=== PATIENT | male | born 1985 | race Caucasian/White ===

== ENCOUNTER 2024-09-30 18:30 | Emergency (ER) | payer OTHER, SELFPAY ==
[2024-09-30 18:31] VITALS: BP 122/71; PULSE 70; RESP 15; TEMP 36.6; O2SAT 100; BMI 25.5
--- NOTE | 2024-09-30 18:48 | CT_ITS ---
EXAM: BRAIN/HEAD WITHOUT CONTRAST CLINICAL HISTORY: 39 y/o M with HEAD INJURY, pinned between horse and adjunct trainer, laceration to the right cheek and nose. COMPARISON: None. TECHNIQUE: Routine CT imaging of the head without IV contrast. Additional multiplanar reformats were obtained. Dose reduction techniques were used including intermediate exposure control (AEC),iterative reconstruction technique, and/or mA and/or KV dose adjustments based on patient's size. FINDINGS: No acute intracranial hemorrhage or herniation. The richardson-white matter interfaces are maintained. No ventriculomegaly. The basal cisterns are patent. No acute calvarial fracture or scalp hematoma. See same day CT face for discussion of right orbital fracture. CT/Brain/Head without Contrast IMPRESSION: 1. No acute intracranial finding. 2. See same day CT face for discussion of right orbital fracture. Reading Location: [id number]
--- NOTE | 2024-09-30 18:48 | CT_ITS ---
PROCEDURE: SINUS/FACIAL BONE REASON FOR EXAM: TRAUMA TECHNIQUE: CT of the paranasal sinuses without contrast. Coronal and Sagittal reconstruction series were provided. One or more dose reduction techniques were used (e.g., Automated exposure control, adjustment of the mA and/or kV according to patient size, use of iterative reconstruction technique). COMPARISON: Same-day CT head. FINDINGS: Acute fracture deformity of the nasal bone, right inferior orbital floor, infratemporal surface of the maxilla, lamina papyracea, right zygomatic process and orbital surface of the zygomatic bone. No obvious extraocular entrapment. No obvious extraocular edema or swelling. Inspissated layering secretions within the right maxillary sinus, compatible with hematoma. The visualized upper cervical bones are unremarkable. CT/Sinus/Facial Bone IMPRESSION: 1. Acute right inferior and medial wall orbital blowout fracture. 2. No obvious extraocular entrapment, edema or swelling. Reading Location: [id number]
[2024-09-30 19:30] VITALS: BP 125/76; PULSE 74; RESP 16; O2SAT 99
[2024-09-30] MEDS: Diphth,Pertuss(Acell),Tet Vac 0.5 ML Vial IM (19:37)
[2024-09-30] MEDS: Lidocaine 2% /Epi 1:100 (20ml) 20 ML VIAL INFILT (19:45)
--- NOTE | 2024-09-30 19:51 | EX.ED.DYSGE1 ---
HPI <DANNIE Alicea - Last Filed: 09/30/24 20:07> History of Present Illness Chief Complaint: Head Injury Narrative Narrative: Patient is a 39-year-old male with no significant medical history, patient states today he was struck by the side of a half of a horse getting caught in between the horse and the trailer. Patient denies any LOC. Patient is unsure of last tetanus vaccination. Patient does have a laceration to the right cheek as well as the bridge of his nose. He denies any vision changes. PFSH <DANNIE Alicea - Last Filed: 09/30/24 20:07> PFSH Medical History no medical history Home Medications ?Medication ?Instructions ?Recorded ?Last Taken ?Type cephalexin 500 mg capsule 500 mg PO TID 5 days #15 caps 09/30/24 Unknown Rx cephalexin 500 mg capsule 500 mg PO TID 5 days #15 caps 09/30/24 Unknown Rx hydrocodone-acetaminophen 5-325mg 1 tab PO Q6H PRN PRN Pain 3 days 09/30/24 Unknown Rx 5mg-325mg #10 TABLETS hydrocodone-acetaminophen 5-325mg 1 tab PO Q6H PRN PRN Pain 3 days 09/30/24 Unknown Rx 5mg-325mg #10 TABLETS hydrocodone-acetaminophen 5-325mg 1 tab PO Q6H PRN PRN Pain 3 days 09/30/24 Unknown Rx 5mg-325mg #10 TABLETS Allergy/AdvReac Type Severity Reaction Status Date / Time No Known Allergies Allergy Verified 09/30/24 18:31 Family History no significant family his Surgical History no surgical history Social History (Updated 09/30/24 @ 18:52 by Cinthia Llanos) household members: family Smoking Status: Never smoker ROS <DANNIE Alicea - Last Filed: 09/30/24 20:07> ROS ED ROS Narrative Constitutional: Negative for fever, chills, weight loss, weakness Eyes: Negative for vision loss, vision change, double vision ENT: Negative for any sore throat, ear pain, congestion Cardiovascular: Negative for any chest pain, tightness, palpitations Respiratory: Negative for any cough, sputum production, hemoptysis, dyspnea, dyspnea on exertion, orthopnea Gastrointestinal: Negative for any abdominal pain, nausea, vomiting, diarrhea, constipation, blood in stool, blood in vomit : Negative for any urinary frequency, dysuria, retention, blood in urine Muscle skeletal: Negative for any neck pain, back pain Neurological: Negative for any headache, syncope, dizziness Skin: Negative for any rashes, itching, abrasions. Positive facial laceration, bridge of nose laceration Psychiatric: Negative for any depression, anxiety, stress, suicidal ideation, homicidal ideation Hematologic: Negative for any excessive bruising, easy bleeding EXAM <DANNIE Alicea - Last Filed: 09/30/24 20:07> Physical Exam Narrative Exam Narrative: Vital signs reviewed. HEET: Head normocephalic atraumatic, TMs clear bilaterally. Posterior pharynx is clear, moist mucous membranes. Nares clear bilaterally. Pupils are equal round reactive to light, negative for any hemotympanum or septal hematoma. Patient is able to move his eyes in all directions, no vision changes, no pain. Patient does have a 3 cm laceration horizontal just to the right cheek as well as a 0.5 laceration to the bridge of the nose. These are full-thickness, will need sutured. Neck: Supple with no lymphadenopathy or tenderness. No signs of meningismus. Cardiac: Regular rate and rhythm no murmurs gallops or rubs, equal peripheral pulses bilaterally. Respiratory: Lungs clear to auscultation bilaterally. No chest tenderness. Abdomen: Soft, nontender, nondistended. No abdominal bruit or pulsatile masses. No hepatosplenomegaly Extremities: No peripheral edema, no signs of gross trauma or deformity. Active full range of motion of all extremities. Neuro: Cranial nerves II through XII intact, no focal neurological deficits. Skin: Clean dry and intact with no rash, purpura, petechiae, vesicles or pustules. Backs/flank: No CVA tenderness, no midline spinal tenderness, no deformity. Psych: Normal mood and affect. No SI, HI or acute psychosis. Const Vital Signs: 09/30/24 18:31 09/30/24 19:30 09/30/24 19:57 Temperature 97.9 F Temperature Source Temporal Pulse Rate 70 74 Respiratory Rate 15 16 Respiratory Effort Normal Respiratory Depth Normal Respiratory Pattern Normal Blood Pressure 122/71 H 125/76 H Blood Pressure Mean 88 92 Pulse Ox 100 99 Oxygen Delivery Method Room Air Room Air Room Air 09/30/24 20:19 Temperature 97.9 F Temperature Source Pulse Rate 77 Respiratory Rate 18 Respiratory Effort Respiratory Depth Respiratory Pattern Blood Pressure 130/89 H Blood Pressure Mean 102 Pulse Ox 96 Oxygen Delivery Method <Dr. Ariel Gallegos DO - Last Filed: 09/30/24 21:22> Physical Exam Const Vital Signs: 09/30/24 18:31 09/30/24 19:30 09/30/24 19:57 Temperature 97.9 F Temperature Source Temporal Pulse Rate 70 74 Respiratory Rate 15 16 Respiratory Effort Normal Respiratory Depth Normal Respiratory Pattern Normal Blood Pressure 122/71 H 125/76 H Blood Pressure Mean 88 92 Pulse Ox 100 99 Oxygen Delivery Method Room Air Room Air Room Air 09/30/24 20:19 Temperature 97.9 F Temperature Source Pulse Rate 77 Respiratory Rate 18 Respiratory Effort Respiratory Depth Respiratory Pattern Blood Pressure 130/89 H Blood Pressure Mean 102 Pulse Ox 96 Oxygen Delivery Method MDM <DANNIE Alicea - Last Filed: 09/30/24 20:07> MDM Radiography Diagnostic Testing: Clinical Impression(s) from Imaging Studies Brain CT 09/30/24 18:48 IMPRESSION: 1. No acute intracranial finding. 2. See same day CT face for discussion of right orbital fracture. Reading Location: [facility] Facial/Sinus 09/30/24 18:48 IMPRESSION: 1. Acute right inferior and medial wall orbital blowout fracture. 2. No obvious extraocular entrapment, edema or swelling. Reading Location: [facility] Treatment and Re-Evaluation :: Differential diagnosis includes however is not limited to: Facial fracture, nasal bone fracture, concussion, intracranial bleeding, entrapment, globe injury, foreign body Patient appears generally well, vital signs are stable, patient is nontoxic-appearing. Presenting to the emergency department after being struck in the face by a horse's hoof. Patient does have 2 lacerations, 3 cm horizontal laceration of the right cheek. This was irrigated copiously with 100 cc normal saline. Anesthetized lidocaine with epinephrine. Sterile gloves, sterile drapes were used. I was able to place 7 simple interrupted sutures of 6-0 Ethilon. Edges approximated nicely. Patient also had a 0.5 cm laceration of the bridge of the nose, 2 simple interrupted sutures of 6-0 Ethilon, this approximated well. Patient did receive a CT scan of the face, CT scan of the brain, all radiologic examinations were read, reviewed by the emergency department attending. From these reads, a plan of care will be put in place. CT scan of the brain shows no acute intracranial finding. CT scan of the facial bones shows an acute right inferior and medial wall orbital blowout fracture. No obvious extraocular entrapment edema or swelling. I did call Dr. Jiménez, he recommended follow-up outpatient. He will follow-up with the patient. I will also give the patient ophthalmology. He is instructed return for any worsening symptoms, all questions answered, stable for discharge. <Dr. Ariel Gallegos, DO - Last Filed: 09/30/24 21:22> MDM Radiography Diagnostic Testing: Clinical Impression(s) from Imaging Studies Brain CT 09/30/24 18:48 IMPRESSION: 1. No acute intracranial finding. 2. See same day CT face for discussion of right orbital fracture. Reading Location: [facility] Facial/Sinus 09/30/24 18:48 IMPRESSION: 1. Acute right inferior and medial wall orbital blowout fracture. 2. No obvious extraocular entrapment, edema or swelling. Reading Location: [facility] Treatment and Re-Evaluation :: Differential diagnosis includes however is not limited to: Facial fracture, nasal bone fracture, concussion, intracranial bleeding, entrapment, globe injury, foreign body Patient appears generally well, vital signs are stable, patient is nontoxic-appearing. Presenting to the emergency department after being struck in the face by a horse's hoof. Patient does have 2 lacerations, 3 cm horizontal laceration of the right cheek. This was irrigated copiously with 100 cc normal saline. Anesthetized lidocaine with epinephrine. Sterile gloves, sterile drapes were used. I was able to place 7 simple interrupted sutures of 6-0 Ethilon. Edges approximated nicely. Patient also had a 0.5 cm laceration of the bridge of the nose, 2 simple interrupted sutures of 6-0 Ethilon, this approximated well. Patient did receive a CT scan of the face, CT scan of the brain, all radiologic examinations were read, reviewed by the emergency department attending. From these reads, a plan of care will be put in place. CT scan of the brain shows no acute intracranial finding. CT scan of the facial bones shows an acute right inferior and medial wall orbital blowout fracture. No obvious extraocular entrapment edema or swelling. I did call Dr. Jiménez, he recommended follow-up outpatient. He will follow-up with the patient. I will also give the patient ophthalmology. He is instructed return for any worsening symptoms, all questions answered, stable for discharge. ED attending note: I evaluated the patient in conjunction with the [facility]. I agree with his/her statements and above findings. I have personally performed a face to face assessment of the patient and have reviewed the [facility] Note. I performed a substantive portion of the visit including all aspects of the following. I personally saw the patient performed chart review, physical exam, reviewed labs, imaging (if obtained), and formulated a treatment and management plan. This note was generated with [employer] dictation software. It may contain incorrect words, spelling, and punctuation that were not noted in review of the chart prior to signing. Discharge Plan Triage Chief Complaint: Head Injury ED Midlevel Provider: Dwaine Falk ED Provider: Ariel Gallegos Dx/Rx/DC Orders Clinical Impression: Facial injury, Face lacerations, Fracture of orbital floor, blow-out, closed, Laceration of nose without complication Instructions: ED Facial Fracture, ED Head Injury (Adult), ED Laceration Minimize Scars, ED Wound Check (No Infection) Prescriptions: New cephalexin 500 mg capsule 500 mg PO TID 5 Days Qty: 15 0RF hydrocodone-acetaminophen 5-325 mg tablet 1 tab PO Q6H PRN PRN (Reason: Pain) 3 Days Qty: 10 0RF hydrocodone-acetaminophen 5-325 mg tablet 1 tab PO Q6H PRN PRN (Reason: Pain) 3 Days Qty: 10 0RF cephalexin 500 mg capsule 500 mg PO TID 5 Days Qty: 15 0RF hydrocodone-acetaminophen 5-325 mg tablet 1 tab PO Q6H PRN PRN (Reason: Pain) 3 Days Qty: 10 0RF Primary Care Provider: Care Physician,No Primary Referrals: Donaldo Jiménez MD [Med Staff - Active Staff] - Alie Bower MD [Med Staff - Active Staff] - Care Physician,No Primary [Primary Care Provider] - Activity Restrictions/Additional Instructions: You have antibiotics, as well as pain medicine as needed. Follow-up with Dr. Jiménez, ophthalmology follow-up to ensure that nothing is wrong with the globe of your eye, sutures out in 5 to 7-day Print Language: Bruneian Disposition Disposition: Home, Self Care Discharge Date/Time: 09/30/24 20:23
[2024-09-30 20:19] VITALS: BP 130/89; PULSE 77; RESP 18; TEMP 36.6; O2SAT 96
== END 2024-09-30 20:23 | disposition home or self-care (01) ==
LOC: ED 20:21
PROVIDERS: Emergency Provider Emergency Medicine; Visit Provider Emergency Medicine
DX: S02.31XA Fracture of orbital floor, right side, initial encounter for closed fracture (principal); S01.81XA Laceration without foreign body of other part of head, initial encounter; S01.21XA Laceration without foreign body of nose, initial encounter; W55.12XA Struck by horse, initial encounter
CPT/HCPCS: 12013; 70450; 70486; 90715; 99284